=== PATIENT | male | born 1980 | race Hispanic/Latino ===

== ENCOUNTER 2017-05-24 21:26 | Emergency (ER) | payer OTHER ==
[~2017-05-24] VITALS: Ht 162.6 cm; Wt 93.4 kg
[~2017-05-24 21:26] MED LIST: CIPRO500 M1 PO; MULTI-VITAMIN-1 EACH PO; PROVENTIL HFA6.7 GM INH; ZOFRAN ODT4 M1 SL
[2017-05-24 21:44] VITALS: BP 107/72
--- NOTE | 2017-05-24 22:30 | ED GI/GU/ABDOMINAL COMPLAINT ---
History of Present Illness General Chief Complaint: General Adult Stated Complaint: "JUST GOT A LOT OF CHILLS AND STOMACH ACHE" Source: patient, old records Exam Limitations: no limitations Vital Signs & Intake/Output Vital Signs & Intake/Output Vital Signs Date Time Temp Pulse Resp B/P B/P Pulse O2 O2 Flow FiO2 Mean Ox Delivery Rate 05/24 2357 96 Room Air 05/24 2144 99.0 71 18 107/72 98 Room Air ED Intake and Output 05/25 0000 05/24 1200 Intake Total 1000 Output Total Balance 1000 Intake, IV 1000 Patient 206 lb Weight Weight Estimated Measurement Method Allergies Coded Allergies: No Known Drug Allergies (NKDA 12/15/16) Reconcile Medications Albuterol Sulfate (Proventil Hfa) 90 MCG HFA.AER.AD 2 PUF INH AD PRN ASTHMA ( Reported) Albuterol Sulfate (Proventil Hfa) 90 MCG HFA.AER.AD 2 PUF INH Q4 wheezing Ciprofloxacin HCl (Cipro) 500 MG TABLET 1 TAB PO BID diarrhea Multivit-Min/Iron Fum/Folic AC (Gqkra-Wexqrlz-Pqefgdlu Tablet) 7.5 MG IRON-400 MCG TABLET 1 TAB PO DAILY SUPPLEMENT (Reported) Ondansetron (Zofran Odt) 4 MG TAB.RAPDIS 1 TAB SL TID PRN nausea Triage Note: RECEIVED 36 YO MALE C/O NAUSEA ALL DAY. PT UNABLE TO EAT SECONDARY TO NAUSEA. PT C/O CHILLS, BODY ACHES, INTERMITTENT STOMACH ACHE. PT HAD SINUS PRESSURE YESTERDAY. Triage Nurses Notes Reviewed? yes Onset: yesterday Duration: day(s):, constant, continues in ED Timing: recent history Quality/Severity: aching, severe, vomiting Location: generalized abdomen Radiation: no radiation Activities at Onset: eating Prior Abdominal Problems: none Past Sexual History: Unobtainable at this time Modifying Factors: Worsens With: eating. Associated Symptoms: abdominal pain, dysuria, loss of appetite, nausea/vomiting HPI: 1 day prior to admission patient complains of anorexia nausea and retching frequent loose watery stool with generalized abdominal discomfort. He denies fever chills vomiting chest pain cough shortness breath headache dysuria rash bleeding ill contact bad foods. Past History Travel History Traveled to [place] past 21 day No Medical History Any Pertinent Medical History? see below for history Neurological: NONE EENT: NONE Cardiovascular: NONE Respiratory: asthma Gastrointestinal: GERD Hepatic: NONE Renal: NONE Musculoskeletal: NONE Psychiatric: NONE Endocrine: NONE Blood Disorders: NONE Cancer(s): NONE Surgical History Surgical History: non-contributory Psychosocial History What is your primary language Guatemalan Tobacco Use: Never used Family History Hx Contributory? No Review of Systems Review of Systems Constitutional: Reports: see HPI, malaise. EENTM: Reports: no symptoms. Respiratory: Reports: no symptoms. Cardiovascular: Reports: no symptoms. GI: Reports: see HPI, abdominal pain, diarrhea, nausea. Genitourinary: Reports: no symptoms. Musculoskeletal: Reports: no symptoms. Skin: Reports: no symptoms. Neurological/Psychological: Reports: no symptoms. Hematologic/Endocrine: Reports: no symptoms. Immunologic/Allergic: Reports: no symptoms. All Other Systems: Reviewed and Negative Physical Exam Physical Exam General Appearance: well developed/nourished, alert, awake, anxious, severe distress, obese Head: atraumatic, normal appearance Eyes: Bilateral: normal appearance, PERRL, EOMI, normal inspection. Ears, Nose, Throat, Mouth: hearing grossly normal, dry mucous membranes Neck: normal inspection, supple, full range of motion, normal alignment Respiratory: normal breath sounds, chest non-tender, no respiratory distress, quiet respiration, lungs clear Cardiovascular: regular rate/rhythm, normal peripheral pulses, norml femoral pulses equa Peripheral Pulses: 4+ carotid (R), 4+ carotid (L) Gastrointestinal: normal bowel sounds, soft, non-tender, no organomegaly Male Genitals: normal genitalia Back: normal inspection, normal range of motion Extremities: normal range of motion, no ligament instability Neurologic/Psych: no motor/sensory deficits, awake, alert, oriented x 3, normal gait, abnormal cerebellar tests, 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 No Sepsis Present: No Sepsis Focused Exam Completed? No Progress Differential Diagnosis: biliary colic, gastritis, pancreatitis, PUD/GERD Plan of Care: Orders Procedure Date/time Status LIPASE 05/24 2220 Complete COMPREHENSIVE METABOLIC PANEL 05/24 2220 Complete CBC WITHOUT DIFFERENTIAL 05/24 2220 Complete Laboratory Tests 05/24/17 2245: Anion Gap 16, Estimated GFR > 60, BUN/Creatinine Ratio 12.0, Glucose 92, Calcium 9.8, Total Bilirubin 0.7, AST 20, ALT 40, Alkaline Phosphatase 78, Total Protein 7.7, Albumin 4.5, Globulin 3.2, Albumin/Globulin Ratio 1.4, Lipase 153, CBC w Diff NO MAN DIFF REQ, RBC 6.16 H, MCV 84.5, MCH 28.0, MCHC 33.1, RDW 13.3, MPV 8.6, Gran % 75.8 H, Lymphocytes % 13.0 L, Monocytes % 8.7, Eosinophils % 2.1, Basophils % 0.4, Absolute Granulocytes 8.0 H, Absolute Lymphocytes 1.4, Absolute Monocytes 0.9 H, Absolute Eosinophils 0.2, Absolute Basophils 0 Initial ED EKG: none Departure Departure Time of Disposition: 0003 Disposition: HOME OR SELF CARE Condition: Stable Clinical Impression Primary Impression: Gastroenteritis Referrals: Arsh Caban MD (PCP/Family) Additional Instructions: Clear liquids in small amounts for 12-24 hours until better Departure Forms: Customer Survey General Discharge Information RELEASE- WORK Prescriptions: Current Visit Scripts Metoclopramide HCl (Reglan) 1 TAB PO 4 TIMES/DAY #30 TAB 30 minutes before meals and bedtime Hyoscyamine Sulfate (Levsin-Sl) 1-2 TAB SL Q4P PRN abdominal cramps #30 TAB Loperamide HCl (Imodium A-D) 0 PO SEE ADMIN CRITERIA PRN diarrhea #24 TAB 1 tab after each loose stool up to 7 per day
[2017-05-24 22:58] LABS: ABSOLUTE BASOPHIL COUNT 0 /CUMM (0.0-0.2); ABSOLUTE EOSINOPHIL COUNT 0.2 /CUMM (0.0-0.7); ABSOLUTE LYMPH COUNT 1.4 /CUMM (1.2-3.4); ABSOLUTE MONOCYTE COUNT 0.9 /CUMM (0.10-0.60); BASOPHIL % 0.4 % (0.0-2.0); EOSINOPHIL % 2.1 % (0-5); GRANULOCYTE % 75.8 % (42.2-75.2); HEMATOCRIT 52.1 % (42-52); MEAN CORPUSCULAR HGB CONC 33.1 G/DL (33.0-37.0); MEAN CORPUSCULAR VOLUME 84.5 FL (80.0-94.0); MEAN PLATELET VOLUME 8.6 FL (7.4-10.4); PLATELET COUNT 178 /CUMM (130-400); RBC DISTRIBUTION WIDTH 13.3 % (11.5-14.5); RED BLOOD CELL CT 6.16 /CUMM (4.70-6.10); WHITE BLOOD CELL COUNT 10.6 /CUMM (4.8-10.8)
[2017-05-25] MEDS ORDERED: IMODIUM A-D2 M1 PO (00:04)
[2017-05-25] MEDS ORDERED: REGLAN10 M1 PO (00:04)
[2017-05-25] MEDS ORDERED: LEVSIN-SL0.125 MG SL (00:04)
== END 2017-05-25 00:15 ==
LOC: ERH 21:26
PROVIDERS: Emergency Medicine
DX: K52.9 Noninfective gastroenteritis and colitis, unspecified (principal)
CPT/HCPCS: 96374; 96375; J2765